=== PATIENT | male | born 1990 | race African-American/Black ===

== ENCOUNTER 2016-07-19 12:07 | Emergency (ER) | payer SELFPAY ==
[~2016-07-19] VITALS: Ht 180.3 cm; Wt 104.3 kg
[~2016-07-19 12:07] MED LIST: MEDROL4 M1 PO; PROAIR HFA8.5 GM INH; ROBITUSSIN COU118 M4 PO
[2016-07-19 12:37] VITALS: BP 124/72
[2016-07-19] MEDS ORDERED: NKM (12:40)
[2016-07-19] MEDS ORDERED: Hydrogen Peroxide 120ml Bottle TOPIC ONE ×2 (12:59→13:15)
[2016-07-19] MEDS ORDERED: Hurricaine 20% Spray ORO ONE (13:00)
--- NOTE | 2016-07-19 13:01 | Emergency Room Report ---
History of Present Illness General Chief Complaint: Toothache Source: Patient Present Illness HPI 25 YO Male presents to the ED c/o pain, swelling, and erythema of the right lower gum line. pt reports tender area that has progressively become more prominent and swollen over the course of three days. pain is 10/10 described as tender and pressure. Denies nausea, vomiting, fevers, chills. Denies injury to the teeth. Patient states that he does not currently have a dentist. states he has been taking Motrin without relief. Denies changes in voice, difficulty swallowing, swollen tender lymph nodes , CP, Palpitations, LOC, AMS, dizziness, Changes in Vision, Sensation, paresthesias, or a sudden severe headache. Allergies: Coded Allergies: No Known Allergies (Unverified , 02/28/16) Patient History Past Medical History: see triage record Past Surgical History: none Pertinent Family History: none Immunizations: UTD Reviewed Nursing Documentation: PMH: Agreed, PSxH: Agreed Nursing Documentation-PMH Past Medical History: No Stated History Review of Systems All Other Systems: negative except mentioned in HPI Physical Exam Vital Signs Date Time Temp Pulse Resp B/P Pulse Ox O2 Delivery O2 Flow Rate FiO2 07/19/16 12:37 98.6 78 14 124/72 94 Room Air Sp02 EP Interpretation: reviewed, normal General Appearance: no apparent distress, alert, GCS 15, non-toxic Head: normocephalic, atraumatic Eyes: bilateral eye PERRL, bilateral eye normal inspection ENT: hearing grossly normal, normal pharynx, no angioedema, normal voice, other - swollen , fluctuance of the lingual gum line adjacent to tooth number 31 , erythema noted. no LAD. Neck: normal inspection, full range of motion, no meningismus, no bony tend, supple/symm/no masses Respiratory: chest non-tender, lungs clear, normal breath sounds, speaking full sentences Cardiovascular #1: regular rate, rhythm, no edema Musculoskeletal: back normal, gait/station normal, normal range of motion, non- tender Neurologic: alert, oriented x3, responsive, motor strength/tone normal, sensory intact, speech normal Psychiatric: judgement/insight normal, memory normal, mood/affect normal Skin: normal color, no rash, warm/dry, well hydrated Lymphatic: no adenopathy Procedures Incision and Drainage Incision and Drainage : Consent: Verbal Site: right lingual gum line Blade Size: 11 I & D Procedure: sterile drapes applied Wound Location: other - mouth/ gum line Wound's Depth, Shape: superficial Wound Length (cm): 1 Wound Explored: contaminated - purulent drainage expressed Anesthesia: other - hurricaine spray 20% Splint Applied?: No Sling Applied?: No Patient Tolerated: Well Complications: None Progress Pt. was anesthetized locally with benzocaine 20% spray. irrigation with saline/hydrogen peroxide mixture multiple times approximately 300cc Medical Decision Making PA Attestation Dr. Dotson is my supervising Physician whom patient management has been discussed with. Diagnostic Impression: Primary Impression: Gum abscess ER Course Pt. presents to the ED c/o pain, swelling, and erythema of the right lower gum line. pt reports tender area that has progressively become more prominent and swollen over the course of three days. pain is 10/10 described as tender and pressure. Ddx considered but are not limited to cellulitis, abscess, dental abscess, ulcer Vital signs: are WNL, pt. is afebrile H&PE are most consistent with gum abscess ORDERS: none required at this time, the diagnosis is clinical ED INTERVENTIONS: -Hurricaine Cosby 20% for local anesthesia. -I & D. d/w pt. follow up with Dentist, was given list of dental clinics. d/w pt to return to ED with worsening or new symptoms. pt will be placed on oral abx. and encouraged to continue mouth rinses at home. DISCHARGE: At this time pt. is stable for d/c to home. Will provide printed patient care instructions, and any necessary prescriptions. Care plan and follow up instructions have been discussed with the patient prior to discharge. Last Vital Signs Date Time Temp Pulse Resp B/P Pulse Ox O2 Delivery O2 Flow Rate FiO2 07/19/16 12:37 98.6 14 124/72 94 Room Air 07/19/16 12:37 78 Disposition: HOME, SELF-CARE Condition: Stable Scripts Acetaminophen* (TYLENOL EXTRA STRENGTH*) 500 Mg Tablet 500 MG ORAL Q6H, #30 TAB 0 Refills Prov: Dottie Payton P.ASeema 07/19/16 Amoxicillin* (AMOXIL*) 500 Mg Capsule 500 MG ORAL EVERY 8 HOURS for 7 Days, #21 CAP Prov: Dottie Payton P.Jackson 07/19/16 Patient Instructions: Dental Abscess, [id number] Additional Instructions: Take medications as directed. Follow up with PCP or Dentist within 3 days Return sooner to ED if new symptoms occur, or current symptoms become worse. - Please note that this Emergency Department Report was dictated using [employer]aml[employer] specialist technology software, occasionally this can lead to erroneous entry secondary to interpretation by the dictation equipment. Dottie Payton Jul 19, 2016 13:01
[2016-07-19] MEDS ORDERED: TYLENOL EXTRA500 MG ORAL (13:02)
[2016-07-19] MEDS ORDERED: AMOXICILLIN500 MG ORAL (13:02)
[2016-07-19] MEDS ORDERED: Norco 7.5mg/325mg tab ORAL ONE (13:15)
[2016-07-19 13:38] VITALS: BP 148/87
== END 2016-07-19 13:39 | disposition home or self-care (01) ==
LOC: EMR 12:48
DX: K05.219 Aggressive periodontitis, localized, unspecified severity (principal)
CPT/HCPCS: 10060

== ENCOUNTER → 2018-03-16 | Emergency (ER) | payer SELFPAY ==
[~2018-03-16] VITALS: Ht 182.9 cm; Wt 86.2 kg
[~2018-03-16] MED LIST changes: +AMOXICILLIN500 MG ORAL; +BACTROBAN15 GM TOPIC; +IBUPROFEN600 MG ORAL; +NKM; +TYLENOL EXTRA500 MG ORAL; +Tetanus/Diptheria/Pertussis Vaccine 0.5ml Syr IM ONE
[2018-03-16 16:15] VITALS: BP 128/83
--- NOTE | 2018-03-16 16:33 | Emergency Room Report ---
History of Present Illness General Chief Complaint: Laceration Source: Patient Present Illness HPI 27-year-old male withhistory here with his mom complaining parents on bilateral thumbs post putting [place] lights.patient denies any broken glass injury. Patient had minimal bleeding and both times and complaining of 5 out of 10 pain. denies pain Radiation, tingling, numbness.pt is not UTD with tentanus. denies all other associated symptoms. can move thumbs with complete ROM Allergies: Coded Allergies: No Known Allergies (Unverified , 03/16/18) Patient History Past Medical History: see triage record Past Surgical History: unable to obtain Pertinent Family History: none Immunizations: other - Tdap given today Reviewed Nursing Documentation: PMH: Agreed; PSxH: Agreed Nursing Documentation-PMH Past Medical History: No History, Except For Review of Systems All Other Systems: negative except mentioned in HPI Physical Exam Vital Signs Date Time Temp Pulse Resp B/P (MAP) Pulse Ox O2 Delivery O2 Flow Rate FiO2 03/16/18 15:54 98.2 98 12 128/83 100 03/16/18 16:15 Room Air Sp02 EP Interpretation: reviewed, normal General Appearance: normal inspection, well appearing, no apparent distress, alert, GCS 15 Head: normocephalic, atraumatic Eyes: bilateral eye normal inspection, bilateral eye PERRL ENT: normal ENT inspection, normal pharynx Neck: normal inspection, full range of motion, supple Respiratory: normal inspection, lungs clear, no wheezing Cardiovascular #1: normal inspection, no edema, no gallop, no JVD, no murmur Cardiovascular #2: 2+ radial (R), 2+ radial (L) Gastrointestinal: normal inspection, soft Rectal: deferred Genitourinary: deferred Musculoskeletal: back normal, digits/nails normal, other - superficial laceration on both thumbs Neurologic: normal inspection, alert, oriented x3, responsive Psychiatric: normal inspection, judgement/insight normal Skin: warm/dry, palpation normal, well hydrated, normal turgor, laceration - superficial both thumbs Lymphatic: normal inspection, no adenopathy Procedures Laceration/Wound Repair Laceration/Wound Repair : Consent: Verbal Wound Location: upper extremity Wound's Depth, Shape: superficial Wound Length (cm): 1 Wound Explored: no foreign body removed Betadine Prep?: Yes Wound Repaired With: Dermabond Layer Closure?: Yes Sterile Dressing Applied?: No Splint Applied?: No Sling Applied?: No Patient Tolerated: Well Complications: None Medical Decision Making PA Attestation all diagnosis and treatment plans were reviewed with my supervising physician Dr. Lafleur Diagnostic Impression: Primary Impression: Laceration of thumb without damage to nail ER Course 27-year-old male withhistory here with his mom complaining parents on bilateral thumbs post putting [place] lights.patient denies any broken glass injury. Patient had minimal bleeding and both times and complaining of 5 out of 10 pain. denies pain Radiation, tingling, numbness.pt is not UTD with tentanus. denies all other associated symptoms. can move thumbs with complete ROM Ddx considered but are not limited to superficial lac both thumbs, foreign body , deep lac Vital signs: are WNL, pt. is afebrile H&PE are most consistent with superficial lac both thumbs ORDERS: Xray both thumbs, pt refuses and signs AMA, Tdap, bactroban, ibuprofen, dermabond, ED INTERVENTIONS: lac repair with dermabond DISCHARGE: At this time pt. is stable for d/c to home. Will provide printed patient care instructions, and any necessary prescriptions. Care plan and follow up instructions have been discussed with the patient prior to discharge. Last Vital Signs Date Time Temp Pulse Resp B/P (MAP) Pulse Ox O2 Delivery O2 Flow Rate FiO2 03/16/18 16:15 98.2 98 12 128/83 100 Room Air Disposition: HOME, SELF-CARE Condition: Stable Patient Instructions: Laceration Care, Adult Additional Instructions: keep hands clean, follow with primary care provider, if numbness in the thumb return to the ER Radha Martinez Mar 16, 2018 16:33
== END | disposition home or self-care (01) ==
LOC: EMR 16:50
DX: S61.012A Laceration without foreign body of left thumb without damage to nail, initial encounter (principal); S61.011A Laceration without foreign body of right thumb without damage to nail, initial encounter; Z23 Encounter for immunization; X58.XXXA Exposure to other specified factors, initial encounter; Y92.009 Unspecified place in unspecified non-institutional (private) residence as the place of occurrence of the external cause
CPT/HCPCS: 90471; 90715; 99283